=== PATIENT | female | born 1935 | race Caucasian/White ===

== ENCOUNTER 2020-11-18 10:07 | Emergency (ER) | payer OTHER ==
--- OUTSIDE RECORDS SUMMARY | 2020-11-18 10:49 | XMS REPORT | Continuity of Care Document ---
:1935 Author Organization [facility] t Address [address] [place] [address] [address]. [address] [place] [address] Care Team Providers Name Role Phone Rica Brooks Primary Care Physician Viktoria ANNE Attending Clinician Unavailable Neda VALDEZ G Attending Clinician Payers Payer Name Policy Type Policy Number Effective Date Expiration Date S ource Problems Condition Condition Condition Status Onset Resolution Last Treating Co mments Source Name Details Category Date Date Treatment Clinician Date No known No known Disease Unive rs active active ity of problems problems [facility] Allergies, Adverse Reactions, Alerts This patient has no known allergies or adverse reactions. Social History Social Habit Start Date Stop Date Quantity Comments Source Exposure to Not sure [facility] SARS-CoV-2 (event) [facility] [place] Sex Assigned [birth year] [facility] 00:00:00 00:00:00 [facility] Smoking Status Start Date Stop Date Source Unknown if ever smoked [facility] Medications Ordered Filled Start Stop Current Ordering Indication Dosage Frequency Signature Comments Components Source Medication Medication Date Date Medication? Clinician (SIG) Name Name HYDROcodone 2020- No 1{tbl} 1 tablet, Univers -acetaminop 11-16 Oral, ity of hen (NORCO 02:15: 01:20 ONCE, 1 Elio as 5) 5-325 mg 00 :00 dose, Sun Med ical tablet 1 11/15/20 at [place] tablet 2114, MARCELLA FENTanyl PF 2020- No 50ug 50 mcg, Un roland (SUBLIMAZE 11-16 Slow IV ity o f (PF)) 01:45: 00:43 Push, [place] injection 00 :00 ONCE, 1 Medical 50 mcg dose, [place] 11/15/20 at 2045, Routine No known No Univers medications [facility] No known No Univers medications [facility] Vital Signs Vital Name Observation Time Observation Value Comments Source Systolic blood 2020-11-16 01:00:00 128 mm[Hg] Univer sity of pressure [facility] Diastolic blood 2020-11-16 01:00:00 67 mm[facility]Hg[facility] 2020-11-16 01:00:00 87 /min [facility] Respiratory rate 2020-11-16 01:00:00 16 /min [facility] Oxygen saturation in 2020-11-16 01:00:00 96 /min [facility] Arterial blood by [facility] Pulse oximetry [place] Body temperature 2020-11-15 21:25:00 36.44 Chanda [facility] Body weight 2020-11-15 21:25:00 68.04 kg [facility] Procedures Procedure Date / Time Performing Clinician Source Performed COVID-19 (ID NOW RAPID 2020-11-16 00:46:00 Hayley Red [facility] CT HEAD WO CONTRAST 2020-11-15 23:29:21 Hayley Red [facility] XR ANKLE <3 VW RIGHT 2020-11-15 23:17:00 Hayley Red [facility] XR FEMUR 2 VW RIGHT 2020-11-15 23:17:00 Hayley Red [facility] XR HIPS 2 VW RIGHT 2020-11-15 23:17:00 Hayley Red [facility] XR TIBIA FIBULA 2 VW 2020-11-15 23:17:00 Hayley Red [facility] XR CHEST 1 VW 2020-11-15 21:59:33 Hayley Red [facility] XR KNEE <3 VW RIGHT 2020-11-15 21:59:33 Hayley Red [facility] LIPASE 2020-11-15 21:36:00 Hayley Red [facility] TROPONIN I 2020-11-15 21:36:00 Hayley Red [facility] COMP. METABOLIC PANEL 2020-11-15 21:36:00 Hayley Red [facility] ([id number] CBC WITH DIFF 2020-11-15 21:36:00 Hayley Red [facility] PROTHROMBIN TIME / INR 2020-11-15 21:36:00 Hayley Red [facility] ACTIVATED PARTIAL 2020-11-15 21:36:00 Hayley Red [facility] Encounters Start End Encounter Admission Attending Care Care Encounter Source Date/Time Date/Time Type Type Clinicians Facility Department ID 2020-11-16 2020-11-16 Nurse JOSE L Blum [id number] Univers 00:00:00 00:00:00 Triage Jodie CORONADO [id number] [facility] [id number] Elio [id number] [facility] 0[address] Branch 2020-11-15 2020-11-15 Emergency [facility] [id number] Univers 16:18:00 20:47:00 Hayley Proctor [id number] [facility] [id number] [facility] [id number] [place] [id number] Branch Results Test Description Test Time Test Comments Results Result Comments Source COVID-19 (ID NOW RAPID TESTING) 2020-11-16 01:11:26 Test Item Value Reference Range Interpretation Comme nts SARS-CoV-2 Rapid ID NOW (test code Not Detected Not Detected = 88737-6) MYNOR (test code = MYNOR) ID NOW COVID-19 Assay is an isothermal nucleic acid amplification test intended for the qualitative detection of nucleic acid from SARS-CoV-2 viral RNA in nasopharyngeal (HAIR[employer]ST[employer] MANAGER) specimens. It is used under Emergency Use Authorization (EUA) by FDA. The limit of detection (LOD) of the assay is 125 Genome Equivalents/mL. A positive result is indicative of the presence of SARS-CoV-2 RNA. ?Clinical correlation with patient history and other diagnostic information is necessary to determine patient infection status. A negative (Not Detected) result does not preclude SARS-CoV-2 infection. In patients with clinical symptoms and other tests that are consistent with SARS-CoV-2 infection, negative results should be treated as presumptive negative and a new specimen should be tested with alternative PCR molecular test. Invalid: Please collect a new specimen for repeat patient testing if clinically indicated. Lab Interpretation (test code = Normal 81770-7) [facility] [id number] 22:34:18 Test Item Value Reference Interpretation Comments Range TROPONIN I (test 0.005 ng/mL See_Comment [Automated code = 2367242474) message] The system which generated this result transmitted reference range : <=0.034. The reference range was not used to interpret this result as normal/abnormal . MYNOR (test code = Reference (Normal) MYNOR) Range (defined by the 99th percentile reference limit): <= 0.034 ng/mL Note: Cardiac troponin begins to rise 3-4 hours after the onset of ischemia. Repeat in 4-6 hours if the sample was drawn within 3-4 hours of the onset of the symptom and found normal. Diagnosis of myocardial injury is made with acute changes in cTn concentrations with at least one serial sample above the 99th percentile upper reference limit (URL), taken together with the patient's clinical presentation. Biotin has been reported to cause a negative bias, interpret results relative to patient's use of biotin. Lab Interpretation Normal (test code = 86966-5) [facility] METABOLIC PANEL (38166)2020-11-15 22:23:18 Test Item Value Reference Range Interpretation Comments NA (test code = 142 mmol/L 135-145 5414017357) K (test code = 3.6 mmol/L 3.5-5.0 7956032883) CL (test code = 104 mmol/L 98-108 5451759212) CO2 TOTAL (test code = 29 mmol/L 23-31 9442970426) AGAP (test code = 2-16 3960990635) BUN (test code = 10 mg/dL 7-23 4992837914) GLUCOSE (test code = 146 mg/dL 70-110 H 3685203987) CREATININE (test code = 0.90 mg/dL 0.50-1.04 0255971896) TOTAL BILI (test code = 0.8 mg/dL 0.1-1.4 5531117419) CALCIUM (test code = 8.8 mg/dL 8.6-10.6 6177285085) T PROTEIN (test code = 7.5 g/dL 6.3-8.2 1017761887) ALBUMIN (test code = 4.3 g/dL 3.5-5.0 0520841105) ALK PHOS (test code = 108 U/L 34-122 3132604934) ALTv (test code = 15 U/L 5-35 2-6) AST(SGOT) (test code = 27 U/L 13-40 1565672988) eGFR (test code = mL/min/1.73m2 5129798259) MYNOR (test code = MYNOR) Association of Glomerular Filtration Rate (GFR) and Staging of Kidney Disease* + --+ --+ ------+| GFR (mL/min/1.73 m2) ?| With Kidney Damage ?| ?Without Kidney Damage+ --------+ --------+ +| ?>90 ?| ?Stage one ?| ? Normal ?+ ---+ ---+ -------+| ?60-89 ?| ?Stage two ?| ? Decreased GFR ? + --+ --+ ------+| ?30-59 ?| ?Stage three ?| ? Stage three ? + --+ --+ ------+| ?15-29 ?| ?Stage four ? | ? Stage four ?+ ---+ ---+ -------+| ?<15 (or dialysis) ? ?| ?Stage five ? | ? Stage five ?+ ---+ ---+ -------+ *Each stage assumes the associated GFR level has been in effect for at least three months. ?Stages 1 to 5, with or without kidney disease, indicate chronic kidney disease. Notes: Determination of stages one and two (with eGFR >59mL/min/1.73 m2) requires estimation of kidney damage for at least three months as defined by structural or functional abnormalities of the kidney, manifested by either:Pathological abnormalities or Markers of kidney damage (including abnormalities in the composition of the blood or urine or abnormalities in imaging tests). Lab Interpretation Abnormal (test code = 77277-1) [facility], [id number] 22:22:38 Test Item Value Reference Range Interpretation Comments LIPASE (test code = 4542554164) 36 U/L 0-220 Lab Interpretation (test code = Normal 13877-4) [facility] AustinaPTT2021-09-05 22:20:37 Test Item Value Reference Range Interpretation Comments APTT Patient (test See_Comment [Automat ed code = 3173-2) message] The system which generated this result transmitted reference range : 23 - 38 Seconds . The reference range was not used to interpr et this result as normal/abnormal . MYNOR (test code = MYNOR) The [facility] patient population mean normal value for aPTT is 30 seconds. Lab Interpretation Normal (test code = 30685-5) [facility] / [id number] 22:18:35 Test Item Value Reference Range Interpretation Comments PROTIME PATIENT (test See_Comment [Auto mated message] code = 5964-2) The system [facility] generated this result transmitted ref erence range: 12.0 - 1 4.7 Seconds. The re ference range was not u sed to interpret this result as normal/abnor mal. INR (test code = 6301-6) Nor mal INR <1.1; Warfarin Therap eutic range 2.0 to 3. 0 or 2.5 to 3.5, dep ending upon the indica tions. Lab Interpretation (test Normal code = 04026-7) [facility] WITH [id number] 22:09:39 Test Item Value Reference Range Interpretation Comments WBC (test code = See_Comment [Automated message] 6690-2) The system [facility] generated this result transmitted ref erence range: 4.30 - 1 1.10 10*3/?L. The re ference range was not u sed to interpret this result as normal/abnor mal. RBC (test code = See_Comment [Automated message] 789-8) The system [facility] generated this result transmitted ref erence range: 3.93 - 5 .25 10*6/?L. The re ference range was not u sed to interpret this result as normal/abnor mal. HGB (test code = 12.6 g/dL 11.6-15.0 718-7) HCT (test code = 39.9 % 35.7-45.2 4544-3) MCV (test code = 92.6 fL 80.6-95.5 787-2) MCH (test code = 29.2 pg 25.9-32.8 785-6) MCHC (test code = 31.6 g/dL 31.6-35.1 786-4) RDW-SD (test code 47.8 fL 39.0-49.9 = 69557-8) RDW-CV (test code 13.9 % 12.0-15.5 = 788-0) PLT (test code = See_Comment [Automated message] 777-3) The system whic h generated this result transmitted ref erence range: 166 - 35 8 10*3/?L. The re ference range was not u sed to interpret this result as normal/abnor mal. MPV (test code = 10.0 fL 9.5-12.9 17248-0) NRBC/100 WBC (test See_Comment [Automat ed message] code = 2252838454) The syste m which generated this result transmitted ref erence range: 0.0 - 10 .0 /100 WBCs. The refer ence range was not u sed to interpret this result as normal/abnor mal. NRBC x10^3 (test <0.01 See_Comment [Automated message] code = 1039043372) The syste m which generated this result transmitted ref erence range: 10*3/?L. The reference range was not used to interpr et this result as normal/abnormal . GRAN MAT (NEUT) % 59.8 % (test code = 770-8) IMM GRAN % (test 0.90 % code = 6491901049) LYMPH % (test code 28.3 % = 736-9) MONO % (test code 7.1 % = 5905-5) EOS % (test code = 3.2 % 713-8) BASO % (test code 0.7 % = 706-2) GRAN MAT 3.19 10*3/uL 1.88-7.09 x10^3(ANC) (test code = 6710150760) IMM GRAN x10^3 0.05 10*3/uL 0.00-0.06 (test code = 6807129270) LYMPH x10^3 (test 1.51 10*3/uL 1.32-3.29 code = 731-0) MONO x10^3 (test 0.38 10*3/uL 0.33-0.92 code = 742-7) EOS x10^3 (test 0.17 10*3/uL 0.03-0.39 code = 711-2) BASO x10^3 (test 0.04 10*3/uL 0.01-0.07 code = 704-7) [facility]"
--- NOTE | 2020-11-18 11:35 | RAD REPORT ---
EXAM DESCRIPTION: CT - Pelvis Wo Cont - 11/18/2020 10:49 am CLINICAL HISTORY: Pelvic pain status post fall COMPARISON: Prior examinations are not available for comparison TECHNIQUE: Computed axial tomography of the pelvis was obtained. Coronal and sagittal reconstruction performed All CT scans are performed using dose optimization technique as appropriate and may include automated exposure control or mA/KV adjustment according to patient size. FINDINGS: Right hip arthroplasty has been performed. No evidence of loosening of the prosthesis. No dislocation. Bony fragments surrounding the proximal prosthesis presumably chronic. Artifact from the prosthesis obscures surrounding detail. Nondisplaced fracture involves the lateral aspect of the proximal to mid diaphysis right femur No significant hip joint effusion is seen. Mild edema within the right pelvis and thigh subcutaneous tissues. Small left renal calculi. Cholelithiasis. IMPRESSION: Nondisplaced fracture involves the proximal to mid diaphysis right femur. It is difficul t to determine if this is acute/subacute or the sequela of the previous fracture. Comparison with loren or CT would be helpful
--- NOTE | 2020-11-18 11:55 | RAD REPORT ---
EXAM DESCRIPTION: RAD - Femur Right - 11/18/2020 11:39 am CLINICAL HISTORY: Leg pain FINDINGS: A right hip arthroplasty has been performed. Bony densities adjacent to the proximal prost hesis presumably chronic Osteoporosis No evidence of loosening of the femoral prosthesis. No acute fracture seen. Please refer to CT report on the same date
--- NOTE | 2020-11-18 12:50 | EDPHYS ---
Physician Documentation [facility] Name: Katarina Sanford Age: 84 yrs Sex: Female : 1935 Arrival Date: 11/18/2020 Time: 10:17 Bed 12 Private MD: ED Physician Jeferson Velásquez HPI: 11/18 14:39 This 84 yrs old Female presents to ER via EMS with complaints of Hip Pain. kb 14:39 The patient or guardian reports pain. that occurred at home, sustained from a fall, kb There is no obvious deformity, The patient is able to ambulate with assistance. The patient is able to bear partial body weight. There is no radiation of the patient's discomfort. The complaints affect the right quadriceps and right hip. Onset: The symptoms/episode began/occurred 5 day(s) ago. Modifying factors: The symptoms are alleviated by nothing, the symptoms are aggravated by nothing. Associated signs and symptoms: Loss of consciousness: the patient experienced no loss of consciousness, Pertinent positives: None. Severity of symptoms: At their worst the symptoms were mild, moderate, in the emergency department the symptoms are unchanged. The patient has not experienced similar symptoms in the past. The patient has been recently seen by a physician: 5 day(s) ago, with similar presenting complaints. Pt reports she fell in the bathroom 5 days ago and has had right hip pain. States she was seen at [facility] and they sent her home after imaging. EMS reports pt was diagnosed with a chronic hip fracture at [facility] and daughter requested she be brought here and admitted for pain management. . Historical: - Allergies: 10:21 No Known Allergies; bp - Home Meds: 10:21 aspirin 81 mg Oral chew 1 tab once daily [Active]; meclizine Oral [Active]; Potassium bp Chloride Oral [Active]; Lasix Oral [Active]; - PMHx: 10:21 Arthritis; Hypertensive disorder; Hypercholesterolemia; bp - Immunization history:: Client reports having NOT received the Covid vaccine. - Social history:: Smoking status: unknown. ROS: 14:36 Constitutional: Negative for fever, chills, and weight loss. kb 14:36 MS/extremity: Positive for pain, of the right quadriceps and right hip. 14:36 All other systems are negative. kb Exam: 14:38 Constitutional: This is a well developed, well nourished patient who is awake, alert, kb and in no acute distress. Head/Face: Normocephalic, atraumatic. ENT: Moist Mucous membranes Cardiovascular: Regular rate and rhythm with a normal S1 and S2. No gallops, murmurs, or rubs. No pulse deficits. Respiratory: Respirations even and unlabored. No increased work of breathing, no retractions or nasal flaring. Abdomen/GI: Soft, non-tender. No distention Skin: Warm, dry with normal turgor. Normal color. Neuro: Awake and alert, GCS 15, oriented to person, place, time, and situation. Moves all extremities. Normal gait. Psych: Awake, alert, with orientation to person, place and time. Behavior, mood, and affect are within normal limits. 14:38 Musculoskeletal/extremity: Extremities: grossly normal except: noted in the right quadriceps and right hip: pain, ROM: no acute changes, Circulation is intact in all extremities. Sensation intact. Weight bearing: can bear weight with assistance only. Vital Signs: 10:21 BP 138 / 57; Pulse 81; Resp 15; Temp 98.3; Pulse Ox 92% on R/A; bp MDM: 10:18 Patient medically screened. kb 12:24 Data reviewed: vital signs, nurses notes. Data interpreted: Pulse oximetry: on room air kb is 92 %. Interpretation: normal. 12:36 Counseling: I had a detailed discussion with the patient and/or guardian regarding: the kb historical points, exam findings, and any diagnostic results supporting the discharge/admit diagnosis, radiology results, the need for outpatient follow up, a orthopedic surgeon, to return to the emergency department if symptoms worsen or persist or if there are any questions or concerns that arise at home. ED course: Discussed with ERP. Pt does not appear to be in any distress since arrival. Recommended outpatient follow up . 12:37 ED course: Pt has tramadol at home. kb 11/18 10:25 Order name: Femur Right XRAY; Complete Time: 12:00 kb 11/18 10:25 Order name: CT Pelvis wo Cont; Complete Time: 11:38 kb Administered Medications: 12:40 Drug: HYDROcodone-acetaminophen 5 mg-325 mg 1 tabs Route: PO; bp 13:05 Follow up: Response: No adverse reaction bp Disposition: 11/19 07:03 Co-signature as Attending Physician, Jeferson Velásquez MD I agree with the assessment and sp3 plan of care. Disposition Summary: 11/18/20 12:50 Discharge Ordered Location: Home kb Condition: Stable kb Diagnosis - Fall on same level from slipping, tripping and stumbling without subsequent kb striking against object - Pain in right hip kb Followup: kb - With: Emergency Department - When: As needed - Reason: Worsening of condition Followup: kb - With: Private Physician - When: 2 - 3 days - Reason: Recheck today's complaints, Continuance of care, Re-evaluation by your physician Discharge Instructions: - Discharge Summary Sheet kb - Musculoskeletal Pain kb - Hip Pain kb Forms: - Medication Reconciliation Form kb - Thank You Letter kb - Antibiotic Education kb - Prescription Opioid Use kb Signatures: Dispatcher [employer] EDMS Vira Borden, DUNIA-Nishi BOMB LOADER-Simeon Galvan, RN RN Jeferson Fountain MD MD sp3
--- NOTE | 2020-11-18 12:50 | ER ---
Nurse's Notes [facility] Name: Katarina Sanford Age: 84 yrs Sex: Female : 1935 Arrival Date: 11/18/2020 Time: 10:17 Bed 12 Private MD: Diagnosis: Fall on same level from slipping, tripping and stumbling without subsequent striking against object;Pain in right hip Presentation: 11/18 10:17 Chief complaint: EMS states: FALL 5 DAYS AGO, DX WITH CHRONIC R HIP FX. DAUGHTER SENT bp TO ER FOR ADMIT 2/2 PAIN CONTROL. Coronavirus screen: At this time, the client does not indicate any symptoms associated with coronavirus-19. Ebola Screen: No symptoms or risks identified at this time. Initial Sepsis Screen: Does the patient meet any 2 criteria? No. Patient's initial sepsis screen is negative. Does the patient have a suspected source of infection? No. Patient's initial sepsis screen is negative. Risk Assessment: Do you want to hurt yourself or someone else? Patient reports no desire to harm self or others. Onset of symptoms is unknown. Care prior to arrival: IV initiated. 20 GA, in the left antecubital area, Oxygen administered. via nasal cannula. 10:17 Method Of Arrival: EMS: [facility] bp 10:17 Acuity: XIOMY 3 bp Triage Assessment: 10:21 General: Appears distressed, uncomfortable, slender, Behavior is cooperative, bp appropriate for age, anxious. Pain: Complains of pain in right hip. EENT: No deficits noted. Neuro: No deficits noted. Cardiovascular: No deficits noted. Respiratory: No deficits noted. GI: No signs and/or symptoms were reported involving the gastrointestinal system. : No signs and/or symptoms were reported regarding the genitourinary system. Derm: No deficits noted. Musculoskeletal: No deficits noted. Historical: - Allergies: 10:21 No Known Allergies; bp - Home Meds: 10:21 aspirin 81 mg Oral chew 1 tab once daily [Active]; meclizine Oral [Active]; Potassium bp Chloride Oral [Active]; Lasix Oral [Active]; - PMHx: 10:21 Arthritis; Hypertensive disorder; Hypercholesterolemia; bp - Immunization history:: Client reports having NOT received the Covid vaccine. - Social history:: Smoking status: unknown. Screenin:26 Abuse screen: Denies threats or abuse. Denies injuries from another. Nutritional bp screening: No deficits noted. Tuberculosis screening: No symptoms or risk factors identified. Fall Risk None identified. Assessment: 10:26 General: SEE TRIAGE NOTE. bp 11:16 Reassessment: PT REMAINS IN RADIOLOGY. bp 12:03 Reassessment: PT RETURNED FROM RAD. HIP XRAY UNCLEAR ON ACUTE VS CHRONI R HIP FX. ORTHO bp C/S PAGED. Vital Signs: 10:21 BP 138 / 57; Pulse 81; Resp 15; Temp 98.3; Pulse Ox 92% on R/A; bp ED Course: 10:17 Patient arrived in ED. bp 10:18 Vira Borden FNP-C is [facility]. kb 10:18 Jeferson Velásquez MD is Attending Physician. kb 10:21 Triage completed. bp 10:21 Arm band placed on. bp 10:26 Patient has correct armband on for positive identification. Bed in low position. Call bp light in reach. Side rails up X2. 10:26 Maintain EMS IV. Dressing intact. Good blood return noted. Site clean \T\ dry. Gauge \T\ bp site: 20 GAUGE L AC. 10:49 CT Pelvis wo Cont In Process Unspecified. EDMS 11:16 Simeon Tinoco, RN is Primary Nurse. bp 11:39 Femur Right XRAY In Process Unspecified. EDMS Administered Medications: 12:40 Drug: HYDROcodone-acetaminophen 5 mg-325 mg 1 tabs Route: PO; bp 13:05 Follow up: Response: No adverse reaction bp Outcome: 12:50 Discharge ordered by . kb 14:45 Patient left the ED. ld1 Signatures: Dispatcher [employer] EDMS Vira Borden FNP-C FNP-Ckb Peltier, Brian, RN RN bp Radha Styles, RN RN ld1
[2020-11-18] MEDS ORDERED: HYDROCODONE/APAP 5/325 MG TAB ONE (13:01)
[2020-11-18 14:51] VITALS: BP 138/57; TEMP 98.3; O2SAT 92
== END 2020-11-18 14:45 | disposition home or self-care (01) ==
LOC: ER 10:07
DX: M25.551 Pain in right hip (principal); W01.0XXA Fall on same level from slipping, tripping and stumbling without subsequent striking against object, initial encounter; Y93.9 Activity, unspecified; Y92.9 Unspecified place or not applicable
CPT/HCPCS: 72192; 99283